=== PATIENT | female | born 1930 | race Caucasian/White ===

== ENCOUNTER 2016-10-06 12:34 | Emergency (ER) | payer MEDICARE, BC ==
[~2016-10-06 12:34] MED LIST: ASAB PO; CRESTOR20 MG PO; FISH-EPA1000 MG PO; NORV5 PO; PRILO PO; RYTHMOL150 MG PO; [UNRECOGNIZED DRUG - OTHER]
[2017-02-10] MEDS ORDERED: RYTHMOL150 MG PO (14:04)
[2017-02-10] MEDS ORDERED: FISH-EPA1000 MG PO (14:05)
[2017-02-10] MEDS ORDERED: LEVOTHYROXIN25 MCG PO (14:05)
[2017-02-10] MEDS ORDERED: HALF81 PO (14:05)
[2017-02-10] MEDS ORDERED: PRIN10 PO (14:05)
[2017-02-10] MEDS ORDERED: THERGRANM PO (14:05)
[2017-02-10] MEDS ORDERED: PRAVACHOL40 MG PO (14:05)
[2017-02-10] MEDS ORDERED: VITAMIN D31000 UNIT PO (14:06)
[2017-02-10] MEDS ORDERED: TEARS PLUS OPH (14:06)
[2017-02-10] MEDS ORDERED: NORV5 PO (14:06)
== END 2016-10-06 16:23 | disposition home or self-care (01) ==
LOC: ER 12:34
DX: S43.102A Unspecified dislocation of left acromioclavicular joint, initial encounter (principal); I48.91 Unspecified atrial fibrillation; Z88.1 Allergy status to other antibiotic agents; Z79.82 Long term (current) use of aspirin; W19.XXXA Unspecified fall, initial encounter
CPT/HCPCS: 73030-LT; 93005; 96374; 96375; 99284; J1170; J2405